=== PATIENT | male | born 1970 | race Caucasian/White ===

== ENCOUNTER → 2017-07-03 | Day surgery (SDC) | payer OTHER ==
[~2017-07-03] VITALS: Ht 177.8 cm; Wt 88.9 kg
--- NOTE | 2017-07-03 10:48 | Operative Report ---
Operative/Inv Procedure Report Surgery Date: 07/03/17 Name of Procedure: Laparoscopic left inguinal hernia better Pre-Operative Diagnosis: Left inguinal hernia Post-Operative Diagnosis: Same Estimated Blood Loss: scant Surgeon/Electrolytic De Scaler: Aditya WHITTINGTON,Conner Moreno/Theron WEI Anesthesia: general endotracheal tube Implants: Parietex mesh Specimens: None Operative/Procedure Note Note: After consent patient is brought to the operating room laid supine. General anesthesia was obtained and the abdomen was prepped and draped. Skin was anesthetized with local anesthesia and a transverse infraumbilical incision made sharply. We identified the rectus fascia and incised transversely. Stay sutures were placed. Rectus muscle was retracted laterally and a dissecting balloon placed posterior to it. It was inflated under direct vision the camera and replaced with a blunt Kwong port. Gas was instilled. 2, 5 mm ports were placed in the infraumbilical midline after local anesthesia was instilled and under direct vision and camera. Began our dissection at the pubis and delineated the symphysis. Jimi's ligament was identified and cleared on the left side. There is a moderate sized direct hernia which was dissected free and reflected inferiorly. Then dissected laterally and developed the iliopubic tract. The cord structures were circumferentially dissected. There was no indirect hernia. Once the dissection was completed a left-sided piece of Parietex mesh was placed in the cavity. It was placed around the cord structures re-create the internal ring and cover the femoral and direct spaces as well. Gas was allowed to escape on maintaining proper orientation of the mesh. The fascia was closed with 0 Vicryl suture. Skin incisions closed with 4 -0 Vicryl. Steri-Strips and sterile dressing applied. Sponge and needle counts are correct. Findings: Direct CC: Darrell Khan DO
== END ==
LOC: STS 02:51
DX: K40.90 Unilateral inguinal hernia, without obstruction or gangrene, not specified as recurrent (principal)
CPT/HCPCS: C1781; C9399; J2250